=== PATIENT | male | born 1970 ===

== ENCOUNTER 2016-10-16 10:12 | Emergency (ER) | payer MEDICAID ==
[2016-10-16 10:13] VITALS: BMI 26.9
[2016-10-16 10:25] VITALS: BP 139/88; PULSE 91; RESP 18; TEMP 98.3; O2SAT 97
--- NOTE | 2016-10-16 10:28 | ED PDOC ---
HPI: Skin/Bite Injury Time Seen by Provider: 10/16/16 10:27 Chief Complaint (Provider): skin irritation History Per: Patient Additional Complaint(s): 46-year-old male with history of type 2 diabetes presents to emergency department with a painful rash to right flank region that he first noticed 2 days ago. Patient denies fever or chills. He denies any recent travel or known sick contacts. 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 - Family History Family History: States: No Known Family Hx - Living Arrangements Living Arrangements: With Family - Social History Current smoker - smoking cessation education provided: No Alcohol: Social Drugs: Denies - Home Medications Home Medications: Ambulatory Orders Medication Instructions Recorded Cephalexin [Keflex] 500 mg PO Q8 #30 cap 12/06/14 Metformin Hydrochloride [Metformin] 500 mg PO BID #0 tab 12/06/14 Acetaminophen/Oxycodone Hydr 5 - 325 mg PO .Q4-6 PRN 12/17/14 [Percocet 325 mg-2.5 mg] Sulfamethoxazole/Trimethoprim 1 tab PO BID 12/17/14 [Bactrim DS Tab] Ibuprofen [Motrin] 600 mg PO Q6H PRN #20 tab 04/07/15 Sulfamethoxazole/Trimethopri 1 tab PO BID #14 tab 04/07/15 [Bactrim Ds 800 mg-160 mg] oxyCODONE/Acetaminophen [Percocet 1 tab PO Q6H PRN #15 tab 04/07/15 5/325 mg Tab] Bacitracin 0.5 gm OP BID #3.5 gm 08/17/16 Glipizide [Glipizide Xl] 10 mg PO BID #30 tab.er.24 08/17/16 MetFORMIN [glucoPHAGE] 1,000 mg PO BID #30 tab 08/17/16 GlipiZIDE [Glucotrol] 10 mg PO BID #60 tab 10/16/16 traMADol [Ultram] 50 mg PO ASDIR PRN #20 tab 10/16/16 valACYclovir [Valtrex] 1 gm PO TID #21 tab 10/16/16 - Allergies Allergies/Adverse Reactions: Allergies Allergy/AdvReac Type Severity Reaction Status Date / Time No Known Allergies Allergy Verified 12/04/14 18:10 Review of Systems ROS Statement: Except As Marked, All Systems Reviewed And Found Negative Constitutional: Negative for: Fever, Chills Cardiovascular: Negative for: Chest Pain Skin: Positive for: Rash Physical Exam - Reviewed Nursing Documentation Reviewed: Yes Vital Signs Reviewed: Yes - Physical Exam Appears: Positive for: Well, Non-toxic, No Acute Distress Skin: Positive for: Rash (Vesicular rash noted to the right flank region, appearance consistent with shingles) Eye Exam: Positive for: Normal appearance Cardiovascular/Chest: Positive for: Regular Rate, Rhythm Respiratory: Positive for: Normal Breath Sounds Gastrointestinal/Abdominal: Positive for: Normal Exam, Soft. Negative for: Tenderness Extremity: Positive for: Normal ROM Neurologic/Psych: Positive for: Alert, Oriented - ECG O2 Sat by Pulse Oximetry: 97 Pulse Ox Interpretation: Normal Medical Decision Making Medical Decision Making: Impression: Shingles Fingerstick: 318 Patient is supposed to take metformin 1000 mg BID and glipizide 10 mg BID but patient states he ran out of glipizide 4 days ago and has not been taking it for 4 days. 10 mg dose of glipizide given in ED today. Patient states he took his morning dose of metformin already. Patient also medicated with Motrin 600 mg and tramadol 50 mg for pain relief. Rx given for valtrex, tramadol and glipizide. Patient was referred to clinic for follow up. Disposition - Clinical Impression Clinical Impression: Shingles, Type 2 diabetes mellitus - Patient ED Disposition Is Patient to be Admitted: No Counseled Patient/Family Regarding: Diagnosis, Need For Followup, Rx Given - Disposition Referrals: [facility] [Outside] Disposition: Routine/Home Disposition Time: 11:28 Condition: STABLE Additional Instructions: Keep affected area on skin clean and dry, do not apply any topical creams. Take Tylenol or Advil available [id number] for mild pain, take prescription pain meds for more severe pain. Take Valtrex as prescribed until completion. Continue with metformin as prescribed. Take glipizide as directed. Follow up with clinic in 2-3 days. Prescriptions: GlipiZIDE [Glucotrol] 10 mg PO BID #60 tab traMADol [Ultram] 50 mg PO ASDIR PRN #20 tab PRN Reason: Pain, Moderate (4-7) valACYclovir [Valtrex] 1 gm PO TID #21 tab Instructions: Shingles (ED), Diabetes Mellitus Type 2 in Adults (ED)
[2016-10-16] MEDS ORDERED: GlipiZIDE 10 mg SR Tab PO ONE (11:30)
== END 2016-10-16 12:00 | disposition home or self-care (01) ==
LOC: H.ER 10:12
DX: B02.9 Zoster without complications (principal); E11.9 Type 2 diabetes mellitus without complications

== ENCOUNTER 2017-04-05 21:05 | Emergency (ER) | payer MEDICAID, OTHER ==
[2017-04-05 21:05] VITALS: BMI 26.9
[2017-04-05 21:31] VITALS: BP 128/78; PULSE 83; RESP 18; TEMP 98.7; O2SAT 99
[2017-04-05] MEDS ORDERED: cefTRIAXone (Rocephin) 250 mg Inj IM ONE (22:23)
[2017-04-05] MEDS ORDERED: cefTRIAXone (Rocephin) 250 mg Inj ONE (22:32)
[2017-04-05] MEDS ORDERED: Sterile Water 10 ML IV ONE (22:32)
[2017-04-05 22:41] LABS: RBC URINE 97 /hpf (0-3); URINE BACTERIA OCC (<OCC); URINE BILIRUBIN NEGATIVE (NEGATIVE); URINE BLOOD SMALL (NEGATIVE); URINE COLOR YELLOW (YELLOW); URINE GLUCOSE (UA) >=500 mg/dL (Normal); URINE KETONE NEGATIVE (NEGATIVE); URINE LEUKOCYTE ESTERASE LARGE Leu/uL (Negative); URINE PROTEIN 30 mg/dL (NEGATIVE); URINE UROBILINOGEN 0.2-1.0 mg/dL (0.2-1.0); WBC URINE 220 /hpf (0-5)
--- NOTE | 2017-04-06 00:15 | ED PDOC ---
HPI: Male Pain Time Seen by Provider: 04/05/17 22:00 Chief Complaint (Nursing): Male Genitourinary Chief Complaint (Provider): Male Genitourinary History Per: Patient History/Exam Limitations: no limitations Current Symptoms Are (Timing): Still Present Associated Symptoms: Other (swollen penis) Additional Complaint(s): 46 year old male presents to ED with complaints of genitourinary problems and has a past medical history of DM. Patient reports being sexually active with multiple partners but denies having a previous history of STDs. (+) penis swelling and white discharge. (-) urinary symptoms, hematuria, dysuria, abdominal pain, fever, or vomiting. PCP: Non [facility] Past Medical History Reviewed: Historical Data, Nursing Documentation, Vital Signs Vital Signs: Last Vital Signs Temp 98.7 F 04/05/17 21:26 Pulse 83 04/05/17 21:26 Resp 18 04/05/17 21:26 BP 128/78 04/05/17 21:26 Pulse Ox 99 04/05/17 21:26 - Medical History PMH: Diabetes Denies: HIV, Chronic Kidney Disease - Surgical History Surgical History: No Surg Hx - Family History Family History: States: Unknown Family Hx - Social History Alcohol: Occasional - Immunization History Hx Tetanus Toxoid Vaccination: No Hx Influenza Vaccination: No Hx Pneumococcal Vaccination: No - Home Medications Home Medications: Ambulatory Orders Medication Instructions Recorded Cephalexin [Keflex] 500 mg PO Q8 #30 cap 12/06/14 Metformin Hydrochloride [Metformin] 500 mg PO BID #0 tab 12/06/14 Acetaminophen/Oxycodone Hydr 5 - 325 mg PO .Q4-6 PRN 12/17/14 [Percocet 325 mg-2.5 mg] Sulfamethoxazole/Trimethoprim 1 tab PO BID 12/17/14 [Bactrim DS Tab] Ibuprofen [Motrin] 600 mg PO Q6H PRN #20 tab 04/07/15 Sulfamethoxazole/Trimethopri 1 tab PO BID #14 tab 04/07/15 [Bactrim Ds 800 mg-160 mg] oxyCODONE/Acetaminophen [Percocet 1 tab PO Q6H PRN #15 tab 04/07/15 5/325 mg Tab] Bacitracin 0.5 gm OP BID #3.5 gm 08/17/16 Glipizide [Glipizide Xl] 10 mg PO BID #30 tab.er.24 08/17/16 MetFORMIN [glucoPHAGE] 1,000 mg PO BID #30 tab 08/17/16 GlipiZIDE [Glucotrol] 10 mg PO BID #60 tab 10/16/16 traMADol [Ultram] 50 mg PO ASDIR PRN #20 tab 10/16/16 valACYclovir [Valtrex] 1 gm PO TID #21 tab 10/16/16 Clotrimazole 1% Cream [Lotrimin 1% 1 applic TOP DAILY #1 tube 04/05/17 CREAM] Glipizide [Glipizide ER] 10 mg PO BID #14 tab 04/05/17 Nitrofurantoin Macrocrystals 100 mg PO BID #14 cap 04/05/17 [Macrobid] metFORMIN [glucOPHAGE] 250 mg PO BID #14 tab 04/05/17 - Allergies Allergies/Adverse Reactions: Allergies Allergy/AdvReac Type Severity Reaction Status Date / Time No Known Allergies Allergy Verified 04/05/17 21:26 Review of Systems ROS Statement: Except As Marked, All Systems Reviewed And Found Negative Constitutional: Negative for: Fever Gastrointestinal: Negative for: Vomiting, Abdominal Pain Genitourinary Male: Positive for: Penile Discharge (white), Other (penile swelling). Negative for: Dysuria, Frequency, Incontinence, Hematuria Physical Exam - Reviewed Nursing Documentation Reviewed: Yes Vital Signs Reviewed: Yes - Physical Exam Appears: Positive for: Non-toxic, No Acute Distress Skin: Positive for: Normal Color, Warm, Dry Male Genital Exam: Positive for: urethral discharge (white discharge), other ( [employer] Director: MÓNICA Patterson). Negative for: normal genitalia (shaft slightly swollen. Uncircumcised.), testicular tenderness (R), testicular tenderness (L) Neurologic/Psych: Positive for: Alert, Oriented - ECG O2 Sat by Pulse Oximetry: 99 (RA) Pulse Ox Interpretation: Normal Medical Decision Making Medical Decision Makin Initial impression: penile discharge, STD v DM related fungal infection Initial plan: * Chlamydia/GC RNA * Rocephin 250mg IM * Azithromycin 1000mg PO * Urine C&S * UA * Re-eval 2330 Upon re-evaluation, patient is stable for discharge home and will follow up with PCP. Scribe Attestation: Documented by Ana Fisher acting as a scribe for Barndy Russ MD. MD Mcleod Attestation: All medical record entries made by the Scribe were at my direction and personally dictated by me. I have reviewed the chart and agree that the record accurately reflects my personal performance of the history, physical exam, medical decision making, and the department course for this patient. I have also personally directed, reviewed, and agree with the discharge instructions and disposition. Disposition - Clinical Impression Clinical Impression: Urinary tract infection, Fungal infection - Patient ED Disposition Is Patient to be Admitted: No Counseled Patient/Family Regarding: Studies Performed, Diagnosis, Need For Followup - Disposition [facility] [[facility]] Disposition: Routine/Home Disposition Time: 23:45 Condition: IMPROVED Additional Instructions: follow up with your primary doctor in 1-2 days return to the ED with any worsening or concerning symptoms Prescriptions: Clotrimazole 1% Cream [Lotrimin 1% CREAM] 1 applic TOP DAILY #1 tube Glipizide [Glipizide ER] 10 mg PO BID #14 tab metFORMIN [glucOPHAGE] 250 mg PO BID #14 tab Nitrofurantoin Macrocrystals [Macrobid] 100 mg PO BID #14 cap Instructions: Urinary Tract Infection in Women (ED), Skin Yeast Infection (ED) Forms: [employer] (Korean)
== END 2017-04-05 23:36 | disposition home or self-care (01) ==
LOC: H.ER 21:05
DX: N39.0 Urinary tract infection, site not specified (principal); B37.49 Other urogenital candidiasis; E11.9 Type 2 diabetes mellitus without complications; Z79.84 Long term (current) use of oral hypoglycemic drugs
CPT/HCPCS: 81003; 82948; 87086; 87491; 87591; 96372; 99283; J0696